=== PATIENT | male | born 1980 | race Caucasian/White ===

== ENCOUNTER 2016-07-11 19:19 | Emergency (ER) | payer BC ==
--- NOTE | 2016-07-11 20:44 | ED Physician Documentation ---
Low Back Pain - HISTORIAN Historian: patient - HPI Chief Complaint: Low Back Pain/ Injury History: back pain Onset: days ago (7 days ago became worse) Duration: continues in ED Recent Injury: No Quality: burning (in right anterior thigh) Associated Symptoms: denies: fever, chills Worsened By:: movement to RT flexion, movement to LT flexion Relieved By: supine, remaining still Further Comments: yes (one week history of back pain, no prcipitting factor noted. Pain is in the mid and lower back are. Has had previous problems and imaging, found to have some pathology (vertabral lesions). Did PT, and medication. Has been having some burning sensation into the right thigh area. Feels like his leg is going to give out on him. Has bben taking Aleve. Has tried heat and cool.) - ROS CONST: no problems CVS/RESP: none - PAST HX Past History: back pain Other History: other (none) Surgeries/Procedures: appendectomy Immunizations: referred to PCP Allergies/Adverse Reactions: Allergies Allergy/AdvReac Type Severity Reaction Status Date / Time shellfish derived Allergy Verified 09/25/15 20:40 Home Medications: Ambulatory Orders Medication Instructions Recorded Baclofen [Lioresal] 10 mg PO TID PRN #30 tablet 09/25/15 Ketorolac Tromethamine [Toradol] 10 mg PO TID #15 tablet 09/25/15 Meloxicam [Mobic] 7.5 mg PO BID PRN #30 ml 07/11/16 - SOCIAL HX Smoking History: non-smoker Alcohol Use: none Drug Use: none - FAMILY HX Family History: no significant history - VITAL SIGNS Vital Signs: Vital Signs Temp Pulse Resp BP Pulse Ox 97.9 F 84 18 157/87 95 07/11/16 19:30 07/11/16 19:30 07/11/16 19:30 07/11/16 19:30 07/11/16 19:30 - REVIEWED ASSESSMENTS Nursing Assessment Reviewed: Yes Vitals Reviewed: Yes ED Results Lab/Radiology - Orders Orders: ED Orders Category Date Time Status T SPINE 3 VIEWS [RAD] Stat Exams 07/11/16 Completed XR L-SP 2 OR 3 VIEWS [L SPINE 2 OR 3 VIEWS] [RAD] Stat Exams 07/11/16 Completed Ketorolac Tromethamine [Toradol] Med 07/11/16 21:09 Discontinued 30 mg IVP NOW ONE Ketorolac Tromethamine [Toradol] Med 07/11/16 21:21 Discontinued 60 mg .ROUTE .STK-MED ONE Ketorolac Tromethamine [Toradol] Med 07/11/16 21:34 Discontinued 60 mg IM NOW ONE traMADol HCL [Ultram] Med 07/11/16 22:08 Ordered 200 mg PO TAKE HOME PRN Low Back Pain/Injury - Physical Exam General Appearance: no acute distress, alert EENT: eye inspection normal, ENT inspection normal Neck: non-tender, painless ROM Resp/CVS: chest non-tender, breath sounds nml, heart sounds nml, no resp. distress, lungs clear, reg. rate & rhythm Abdomen: non-tender, no organomegaly, no pulsatile mass, other (obese) Back: vertebral point-tendernes (from t4-8), CVA tenderness, other (tenderness to the lower lumbar area, no bony abnl noted). No: muscle spasm Straight Leg Raising: Negative Left, Negative Right Neuro/Psych: oriented x3, motor nml, reflexes nml, other (decrease sensation to the T11-l4 dematomes). No: sensation nml, difficulty walking Skin: warm/dry, other (with minimal palpation patient pulls wawy complaining of pain but moves fairly well) Extremities: non-tender, normal range of motion Discharge Clincal Impression: Back pain Qualifiers: Back pain location: low back pain Chronicity: acute Back pain laterality: right Sciatica presence: without sciatica Qualified Code(s): M54.5 - Low back pain Prescriptions: Meloxicam [Mobic] 7.5 mg PO BID PRN #30 ml PRN Reason: Pain Referrals: Primary Doctor,No [Primary Care Provider] - 2 Days Additional Instructions: Continue to use a warm/cool compress to back area, do stretching exercises, take meloxicam as needed for pain. To get established with a primary care provider for further pain management. Home Medications: Ambulatory Orders Baclofen [Lioresal] 10 mg PO TID PRN #30 tablet 09/25/15 Ketorolac Tromethamine [Toradol] 10 mg PO TID #15 tablet 09/25/15 Meloxicam [Mobic] 7.5 mg PO BID PRN #30 ml 07/11/16 Comments: Do back exercises. Take meloxicam as directed. Continue to use some warm and cool compresses to the back area. Get established with a primary care provider for further care. Condition: Stable Disposition: 01 HOME, SELF-CARE Decision to Admit: NO Date of Decison to Admit: 07/11/16 Decision Time: 22:02
[2016-07-11] MEDS ORDERED: KETOROLAC TROMETHAMINE 30 MG/1ML VIAL IVP ONE (21:09)
[2016-07-11] MEDS ORDERED: KETOROLAC TROMETHAMINE 60 MG/2 ML VIAL ONE (21:21)
[2016-07-11] MEDS ORDERED: KETOROLAC TROMETHAMINE 60 MG/2 ML VIAL IM ONE (21:34)
--- NOTE | 2016-07-11 22:03 | Diagnostic Imaging Report ---
SANDIE HEWITT [facility] [address] [facility].[address] [id number] Report Submission Date: Jul 11, 2016 9:58:19 PM CDT Patient Study Name: HOMER KIM Date: Jul 11, 2016 9:28:05 PM CDT Modality Type: CR Gender: M Description: SPINE : 76 Institution: [facility] Physician: SANDIE HEWITT Thoracic spine - three views Clinical history: Back pain for 1 week. Findings: Examination of the thoracic spine in AP, lateral and lateral swimmer' s views demonstrates the vertebrae to be anatomically aligned. There are osteophytes in the mid and lower thoracic vertebrae. Pedicles are intact and the paravertebral soft tissues are within normal limits. Impression: 1. Mild spondylosis. 2. No fracture. Electronically signed on Jul 11, 2016 9:58:19 PM CDT by: Ney TOLEDO
--- NOTE | 2016-07-11 22:03 | Diagnostic Imaging Report ---
SANDIE HEWITT [facility] [address] [facility].[address] [id number] Report Submission Date: Jul 11, 2016 9:56:56 PM CDT Patient Study Name: HOMER KIM Date: Jul 11, 2016 9:30:15 PM CDT Modality Type: CR Gender: M Description: SPINE : 76 Institution: [facility] Physician: SANDIE HEWITT Lumbar spine three views Clinical history: Low back pain for 1 week. Findings: Examination lumbar spine in AP, lateral and lateral coned-down views demonstrates the vertebrae to be anatomically aligned. Pedicles are intact and the paravertebral soft tissues are within normal limits. There is no evident fracture. Impression: 1. Negative lumbar spine. Electronically signed on Jul 11, 2016 9:56:56 PM CDT by: Ney TOLEDO
[2016-07-11] MEDS ORDERED: traMADol HCL 50 MG TABLET PO PRN (22:08)
[2016-07-11] MEDS ORDERED: traMADol HCL 50 MG TABLET ONE (22:21)
[2016-07-11 22:34] VITALS: BP 136/77
== END 2016-07-11 22:27 | disposition home or self-care (01) ==
LOC: ED 19:19
DX: M54.5 Low back pain (principal)
CPT/HCPCS: 72072; 72100; J1885; 96372; 99283

== ENCOUNTER 2016-07-25 09:00 | Emergency (ER) | payer BC ==
[2016-07-25 09:21] VITALS: BP 130/88
--- NOTE | 2016-07-25 10:32 | ED Physician Documentation ---
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 was given acyclovir 500 bid x 3 days at another er w/o relief has active lesions and vessicles genital area. quite painful - finished the achclovir last day or wso-no better. Onset: days ago (5) Timing: worse Duration: persistent since Quality: itchy, painful, burning Identified Cause?: Yes (has lab dx of condition) Context: Medication Exposure: none - ROS CONST: none CVS/RESP: none EYES/ENT: none MS/SKIN/LYMPH: none NEURO/PSYCH: none - PAST HX Past History: none Allergies/Adverse Reactions: Allergies Allergy/AdvReac Type Severity Reaction Status Date / Time shellfish derived Allergy Verified 07/25/16 09:11 Home Medications: Ambulatory Orders Medication Instructions Recorded Valacyclovir HCl [Valacyclovir] 500 mg PO BID 07/25/16 - SOCIAL HX Smoking History: non-smoker Alcohol Use: none Drug Use: none - FAMILY HX Family History: none - VITAL SIGNS Vital Signs: Vital Signs Temp Pulse Resp BP Pulse Ox 98.4 F 78 19 130/88 96 07/25/16 10:05 07/25/16 10:05 07/25/16 10:05 07/25/16 10:05 07/25/16 10:05 - REVIEWED ASSESSMENTS Nursing Assessment Reviewed: Yes Vitals Reviewed: Yes Skin Rash Physical Exam - EXAM General Appearance: anxious Skin: warm,dry, lesion (urogenital arela legs) Character: asymmetric, macular, vesicular Symptoms: tenderness Extremities: non-tender, no edema EENT: eyes nml inspection Neck: trachea midline Respiratory: no resp distress CVS: reg. rate & rhythm Neuro/Psych: oriented x3, motor nml, sensation nml, depressed mood/affect Discharge Clincal Impression: exab HSV Referrals: Primary Doctor,No [Primary Care Provider] - 2 Days Home Medications: Ambulatory Orders Valacyclovir HCl [Valacyclovir] 500 mg PO BID 07/25/16 Comments: PT TOLD ME ACYCLOVIR PREV TX 500 BID X 3 DAYS. added clotrimazole plusd higher dosage acyclovir and ultram and to f/u w/ dermatologisdts Condition: Fair Disposition: 01 HOME, SELF-CARE Decision to Admit: NO Decision Time: 09:22
== END 2016-07-25 10:05 | disposition home or self-care (01) ==
LOC: ED 09:00
DX: A60.1 Herpesviral infection of perianal skin and rectum (principal)
CPT/HCPCS: 99283

== ENCOUNTER 2016-08-10 13:37 | Outpatient (CLI) | payer BC ==
--- NOTE | 2016-08-12 12:54 | HISTORY AND PHYSICAL REPORT ---
REFERRING PHYSICIAN: Dr. Jesus Diaz HISTORY OF PRESENT ILLNESS: I had the opportunity of seeing Anastacia Loja today as an outpatient at [facility]. Anastacia is a delightful 36-year-old white male who gives me a 2 to 3 history of right-sided both gluteal and anterior thigh pain which at times becomes associated with numbness in the medial calf of the right leg. He denies pain on the left side. He denies symptoms of neurogenic claudication. 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 He has x-ray images with him today which are for the most part normal. He tells me that he had an MRI done at the [place] [facility] and was told he had a disk injury between L4 and L5 in the lumbar spine. He denies pain on the left. He has symptoms of L4 radiculitis on the right. His rates the pain as severe as 10/10 on a visual analog scale or as little as 1 over 10 on the visual analog scale with rest. PAST MEDICAL HISTORY: History of back pain for 2 years. PAST SURGICAL HISTORY: Appendectomy in 2007. DAILY MEDICATIONS: Meloxicam 15 mg b.i.d. ALLERGIES: Shell fish causing swelling in his mouth and throat. SOCIAL HISTORY: He has never used tobacco. He quit drinking in 2014. Denies recreational drugs. He is and has 4 children. He obtained his GED. He is currently employed. 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 He is not currently disabled. FAMILY HISTORY: Mother with pain problems resulting from arthritis and bone spurring. REVIEW OF SYSTEMS: In the last month or so, he reports a weight gain. Pain is worsened with standing, bending, twisting, driving, gradually worsens as the day progresses, and in any position for too long. Pain is improved with lying down, sitting, and massage. PHYSICAL EXAMINATION: Vital Signs: BP: 140/80, P: 62, R: 20, oxygen saturation is 98% on room air. General: The patient is well nourished, well developed, and in no apparent distress. Awake, alert, and oriented. HEENT: Pupils are equal, round, and reactive to light and accommodation. Extraocular movements intact. No facial droop. Neck: There is full range of motion of the cervical spine. No evidence of adenopathy. Thyroid is nontender, no enlarged. Carotids are without bruits. Chest: Clear to auscultation bilaterally. Normal. Chest excursion. Heart: Regular rate and rhythm without murmur. Abdomen: Benign. Normoactive bowel sounds. Motor/sensory: Intact in the upper and lower extremities. Moves all extremities freely. Back: There is pain in the right sciatic notch. There is a positive femoral nerve stretch. Strength is 5/5 and equal in the lower extremities. Reflexes are 2+ and equal on the left patellar tendon and 1+ on the right patellar tendon and 2+ at the Achilles tendons. ASSESSMENT: Right L4 radiculitis. PLAN: Plan for right L4-L5 epidural steroid injection under fluoroscopy. I will follow this nice gentleman up next month and reevaluate. I discussed activity pacing and if he is standing and beginning to get symptoms, that may be a signal to sit down for a while and activity pace. He is in agreement and we will obtain approval for a right L4-L5 epidural steroid injection in the clinic and follow him up with his MRI study. Dr. Diaz, thank you very much for allowing me to take part in the care of this nice gentleman. I appreciate the opportunity to take part in the care of your patients. cc: Dr. Jesus TOLEDO
--- NOTE | 2016-09-14 12:15 | LESI WITH FLUORO ---
SUBJECTIVE: I had the opportunity of seeing Tate Loja today as an outpatient at [facility]. Tate is a very nice 36-year-old white male who complains of back pain and right anterior thigh pain which began over a year ago and he says maybe almost 2 years ago. He has more pain with standing, bending, walking, and twisting. Severity can be as great as 8 over 10 on the visual analog scale and never better than 2 over 10 on the visual analog scale. Pain is relieved by walking, sitting, or massage. He has had tramadol in the past. He has done some physical therapy for low back pain in the past. He has had massage therapy. He has taken non-steroidal antiinflammatories without improvement. He denies pain on the left side. He has pain over the L4 dermatomal segment. OBJECTIVE: Vital Signs: BP: 142/85, P: 83, R: 20, T: 97.7, oxygen saturation is 98%. General: The patient is well nourished, well developed, and in no apparent distress. Awake, alert, and oriented. HEENT: Pupils are equal, round, and reactive to light and accommodation. Extraocular movements intact. No facial droop. Neck: There is full range of motion of the cervical spine. No evidence of adenopathy. Thyroid is nontender, no enlarged. Carotids are without bruits. Chest: Clear to auscultation bilaterally. Normal. Chest excursion. Heart: Regular rate and rhythm without murmur. Abdomen: Benign. Normoactive bowel sounds. Motor/sensory: Intact in the upper and lower extremities. Moves all extremities freely. Back: There is a positive femoral nerve stretch on the right. Strength is 5/5 and equal in the lower extremities. OPERATIVE PROCEDURE: Right L4-L5 epidural steroid injection with fluoroscopic guidance. DESCRIPTION OF PROCEDURE: The risks and benefits were discussed with the patient including the risk of infection, bleeding, nerve injury, and headache, as well as the risks of steroid exposure causing hyperglycemia, hypertension, osteoporosis, or increased infectious risks. The patient understood these risks and agreed to proceed. Consent was obtained prior to the procedure. The patient was placed in the prone position on the fluoroscopy table with a pillow underneath the abdomen to afford anterior flexion of the lumbar spine. The low back was cleaned and a sterile drape was applied. An 18-gauge thin wall Tuohy epidural needle was advanced with normal saline loss of resistance technique and direct fluoroscopic guidance with a right paramedian approach at the L4-L5 level. On obtaining loss of resistance to normal saline, it was verified that there was no aspiration of CSF or blood. Furthermore, the needle tip location was verified with lateral and AP fluoroscopic views. Omnipaque 240 myelogram dye were injected through the epidural needle. The distribution of the dye was noted to be within the desired distribution within the lumbar epidural space. The patient did report some reproduction of the low back and / or lower extremity pain symptoms; this reproduction of symptoms was short- lived. Triamcinolone acetate, and 1% lidocaine was injected into the epidural space. The stylet was replaced in the needle and the needle was removed from the back. The patient tolerated the procedure well. The back was cleaned and a bandage was applied over the injection site. The patient was monitored for 20 minutes following the procedure. during this time the vital signs remained stable and the patient experienced no adverse sequelae. The patient was discharged in good condition. ASSESSMENT: Right L4 radiculitis. PLAN: Right L4-L5 epidural steroid injection under fluoroscopy. FOLLOWUP: He will follow up with me in approximately [address] Diaz, thank you very much for allowing me to take part in the care of this nice gentleman. cc: Dr. Jesus TOLEDO
== END 2016-08-10 13:40 ==
LOC: OUT 13:37
PROVIDERS: ATTEND Anesthesiology Pain Medicine
DX: M54.16 Radiculopathy, lumbar region (principal)
CPT/HCPCS: 64483; 99203; J3301; Q9966

== ENCOUNTER 2016-09-14 12:46 | Outpatient (CLI) | payer BC ==
--- NOTE | 2016-09-15 11:48 | LUMBAR FACET MBB ---
SUBJECTIVE: I had the opportunity of following up with Tate Loja. This is a patient with a history of right greater than left leg pain and low back pain. I placed an L4-L5 epidural injection palliatively on his initial presentation last month and he is no better. He had an MRI done last December and we were able to get the results from the [facility] which revealed primary lumbar spondylosis without spinal or neural foramina stenosis. He has a positive assisted extension and extension rotation finding on exam today. Plan today for bilateral facet medial branch nerve blocks under fluoroscopic guidance as a diagnostic/palliative intervention. At that point if this was diagnostically significant, I would consider radiofrequency neurolysis. PREOPERATIVE DIAGNOSIS: Lumbar spondylosis. POSTOPERATIVE DIAGNOSIS: Lumbar spondylosis. OPERATIVE PROCEDURE: Bilateral L3 through sacral ala facet medial nerve branch blocks with fluoroscopic guidance for axial back pain. DESCRIPTION OF PROCEDURE: The risks and benefits of the procedure were explained to the patient including the risk of infection, bleeding, and nerve injury. In addition, the risk of steroid exposure causing hyperglycemia, hypertension, osteoporosis, or increased infectious risks were explained to the patient. The patient understood these risks and agreed to proceed. The patient was positioned prone on the fluoroscopic procedure table and a sterile prep and drape were applied. The L3 vertebral body and transverse process of L3 and superior articular process were identified and under oblique placement, a #23-gauge, 3-1/2-inch spinal needle was advanced to the junction of the left L3 transverse process and superior articular process at the level of the L3 facet medial branch nerve. Aspiration was negative for blood or CSF. Following this, 0.25% bupivacaine with epinephrine mixed with 1% lidocaine and triamcinolone was placed. This did in fact re-create the patient's usual pain symptoms. In the exact same fashion, the right L3, bilateral L4, bilateral L5, and bilateral sacral ala facet medial branch blocks were subsequently performed for a total of 8 medial branch blocks at 4 levels bilaterally. At the conclusion of the procedure, the patient reported greater than 90% improvement of his low back pain. He was discharged home with a diary. He will follow up next month for possible radiofrequency neurolysis. On completion of the procedure, the back was cleaned and a bandage was applied over the injection sites. The patient tolerated the procedure without complications. The patient was monitored for 20 minutes following the procedure during which time the patient experienced no adverse sequelae. The patient was discharged to home in good condition. The patient was instructed to pay close attention to low back pain symptoms with activity over the next 6 hours, specifically performing normal activities which may usually exacerbate the low back pain complaints (in order to test the effect of the nerve blocks). ASSESSMENT: Lumbar facet arthropathy. PLAN: Plan today for bilateral facet medial branch nerve blocks under fluoroscopic guidance as a diagnostic/palliative intervention. [place]
== END 2016-09-14 12:48 ==
LOC: OUT 12:46
PROVIDERS: ATTEND Anesthesiology Pain Medicine
DX: M47.896 Other spondylosis, lumbar region (principal)
CPT/HCPCS: 64493; 64494; 64495; 99214; J3301; J3490

== ENCOUNTER 2016-09-22 18:32 | Emergency (ER) | payer BC ==
--- NOTE | 2016-09-22 19:09 | ED Physician Documentation ---
Low Back Pain - HISTORIAN Historian: patient - HPI Stated Complaint: upper and lower back pain History: history of chronic pain:, back pain Onset: other (months) Duration: continues in ED Recent Injury: No Context: other (no precipitting factor) Severity: moderate Quality: similar- prior back pain Associated Symptoms: denies: fever, chills Worsened By:: supine, other (sanding or sitting for to claeb) Relieved By: nothing Further Comments: yes (Has been seeing pain specilaist for back pain in the midthoracic andlower back area. Has been using NSAIDs and massage therapy w/o help. Has had several steroid injections, TENS, and branch block. Nerve block did help for a period fo time and is scheduled for ablation therapy.) - ROS CVS/RESP: none - PAST HX Past History: back pain Other History: other (no) Surgeries/Procedures: appendectomy Allergies/Adverse Reactions: Allergies Allergy/AdvReac Type Severity Reaction Status Date / Time shellfish derived Allergy Verified 09/22/16 18:45 Home Medications: Ambulatory Orders Medication Instructions Recorded Ibuprofen [Motrin Ib] 800 mg PO TID 09/22/16 Naproxen [Naprosyn] 1,000 mg PO BID 09/22/16 Tramadol HCl [Ultram] 50 mg PO Q4 PRN #20 tablet 09/22/16 - SOCIAL HX Smoking History: non-smoker Alcohol Use: none Drug Use: none - FAMILY HX Family History: no significant history - VITAL SIGNS Vital Signs: Vital Signs Temp Pulse Resp BP Pulse Ox 130/88 07/25/16 10:05 - REVIEWED ASSESSMENTS Nursing Assessment Reviewed: Yes Vitals Reviewed: Yes Low Back Pain/Injury - Physical Exam General Appearance: alert, mild distress Neck: non-tender Resp/CVS: chest non-tender, breath sounds nml, heart sounds nml, no resp. distress, lungs clear, reg. rate & rhythm Back: vertebral point-tendernes (over mid thoracic back area), muscle spasm ( perilumbar area) Straight Leg Raising: Negative Left, Negative Right Neuro/Psych: oriented x3, motor nml, sensory/motor deficit (to light touch over the anterior thigh and lateral calf area). No: sensation nml Skin: warm/dry, normal color Extremities: non-tender, normal range of motion, no evidence of injury Discharge Clincal Impression: Acute back pain Prescriptions: Tramadol HCl [Ultram] 50 mg PO Q4 PRN #20 tablet PRN Reason: Pain Referrals: Primary Doctor,No [Primary Care Provider] - 2 Days Additional Instructions: Continue with exercises for your back pain. Keep your appointments with pain specialist. Take Tramadol every 4 hours as needed for pain. Take it with some food. Follow-up as needed. Home Medications: Ambulatory Orders Ibuprofen [Motrin Ib] 800 mg PO TID 09/22/16 Naproxen [Naprosyn] 1,000 mg PO BID 09/22/16 Tramadol HCl [Ultram] 50 mg PO Q4 PRN #20 tablet 09/22/16 Condition: Stable Disposition: 01 HOME, SELF-CARE Decision to Admit: NO Date of Decison to Admit: 09/22/16 Decision Time: 19:11
[2016-09-22 19:41] VITALS: BP 138/68
== END 2016-09-22 19:40 | disposition home or self-care (01) ==
LOC: ED 18:32
DX: M54.9 Dorsalgia, unspecified (principal)
CPT/HCPCS: 99283

== ENCOUNTER 2017-01-10 04:11 | Emergency (ER) | payer SELFPAY ==
[2017-01-10] MEDS ORDERED: ALBUTEROL SULFATE 2.5 MG/3 ML AMPUL.NEB NEB ONE (04:23)
[2017-01-10] MEDS: ALBUTEROL SULFATE 2.5 MG/3 ML AMPUL.NEB NEB ONE (04:24)
[2017-01-10 04:33] VITALS: BP 130/75
[2017-01-10] MEDS: guaiFENesin/CODEINE PHOS 30ML BOTTLE PO ONE (04:41)
--- NOTE | 2017-01-10 04:41 | ED Physician Documentation ---
Upper Respiratory Symptoms - HISTORIAN Historian: patient - HPI Stated Complaint: cough Chief Complaint: Cough/ Upper Respiratory Onset: minutes Associated Symptoms: other. denies: fever, chills, sweating, earache, runny nose, sinus pain, sinus drainage, sore throat, hoarseness, allergy, hay fever, chest pain, bloody cough, productive cough, shortness of breath, hurts to breathe, headache Further Comments: yes (36 year old male patient presents with complaint of 15 minutes of coughing. States he was sleeping, awoke coughing. Lasted for 15 minutes, came to Er for evaluation. Denies SOB, states he felt fine when he went to bed. c/o wheezing.) - ROS CONST/EYES: denies: weakness, eye redness, eye itching CVS/RESP: none LYMPH: denies: leg swelling, rash GI/: none NEURO/PSYCH: denies: fainting, dizziness, confusion MS/SKIN: denies: joint pain, muscle aches, rash - PAST HX Lung Disease: none PE Risk Factors: none Surgeries/Procedures: appendectomy Allergies/Adverse Reactions: Allergies Allergy/AdvReac Type Severity Reaction Status Date / Time shellfish derived Allergy Verified 01/10/17 04:27 Home Medications: Ambulatory Orders Medication Instructions Recorded NK [NK] 01/10/17 - SOCIAL HX Smoking History: non-smoker - FAMILY HX Family History: denies: none - VITAL SIGNS Vital Signs: Vital Signs Temp Pulse Resp BP Pulse Ox 97.7 F 81 16 130/75 97 01/10/17 04:45 01/10/17 04:45 01/10/17 04:45 01/10/17 04:45 01/10/17 04:45 - REVIEWED ASSESSMENTS Nursing Assessment Reviewed: Yes Vitals Reviewed: Yes Progress - Progress Progress: albuterol neb and cough medication given in Er. No coughing while in Er. ED Results Lab/Radiology - Orders Orders: ED Orders Category Date Time Status Albuterol Sulfate [Ventolin] Med 01/10/17 04:23 Discontinued 2.5 mg NEB .STK-MED ONE Albuterol Sulfate [Ventolin] Med 01/10/17 04:22 Discontinued 2.5 mg NEB NOW ONE guaiFENesin/CODEINE PHOS 30ML [Robitussin AC] Med 01/10/17 04:41 Discontinued 10 ml PO NOW ONE Upper Respiratory Symptoms - EXAM General Appearance: alert, anxious EENT: eyes nml inspection, nml ENT inspection, lids & conjunct. nml, PERRL, ear nml, nose nml, pharynx nml, airway nml Respiratory: no resp. distress, breath sounds nml, no pain on inspiration, speaks full sentences, no pleuritic chest pain, other (no stridor). No: wheezes Abdomen: non-tender CVS: reg rate & rhythm, heart sounds normal, equal pulses, no murmur, no gallop , PMI nml, no JVD, no friction rub, 24 Skin: color nml, no rash, warm,dry Extremities: non-tender, normal range of motion, no evidence of injury, no edema , J, [employer] Neuro/Psych: oriented x3, neuro intact, mood/affect nml, CN's nml as tested Discharge Clincal Impression: Cough Referrals: Primary Doctor,No [Primary Care Provider] - 2 Days Condition: Stable Disposition: 01 HOME, SELF-CARE Decision to Admit: NO Decision Time: 04:41
== END 2017-01-10 04:45 | disposition home or self-care (01) ==
LOC: ED 04:11
DX: R05 Cough (principal)
CPT/HCPCS: 99283

== ENCOUNTER 2017-02-17 12:30 | Emergency (ER) | payer SELFPAY ==
--- NOTE | 2017-02-17 12:50 | ED Physician Documentation ---
General Adult - HISTORIAN Historian: patient - HPI Stated Complaint: right leg nerve pain which is managed by pain med Chief Complaint: Lower Extremity Problem Additional Information: Pain that is managed by Pain management - his insurance lapsed for 30 days and his surgery was cancelled. He has no new symptoms He denies any new issues HE states the pain is from the nerve and he is waiting on nerve ablation Timing: still present Severity: mild Modifying Factors: when he stands at work Context: Pain that moves down the right leg and to front Location: Right leg Further Comments: no Last known Well Date: 02/08/17 Last Known Well Time: 07:00 Last known Well Code/Unknown Code: Unknown - ROS CONST: no problems EYES/ENT: none CVS/RESP: none GI/: none MS/SKIN/LYMPH: none NEURO/PSYCH: denies: headache, fainting, dizziness - PAST HX Past History: other (nerve pain ) Other History: none Surgeries/Procedures: none, other (Appendix ) Immunizations: referred to PCP Allergies/Adverse Reactions: Allergies Allergy/AdvReac Type Severity Reaction Status Date / Time shellfish derived Allergy Verified 02/17/17 12:50 Home Medications: Ambulatory Orders Medication Instructions Recorded Tramadol HCl [Ultram] 50 mg PO BID PRN #20 tablet 02/17/17 - SOCIAL HX Smoking History: non-smoker Alcohol Use: none Drug Use: none - FAMILY HX Family History: Yes - VITAL SIGNS Vital Signs: Vital Signs Temp Pulse Resp BP Pulse Ox 130/75 01/10/17 04:45 General Adult Physical Exam - PHYSICAL EXAM GENERAL APPEARANCE: no distress EENT: eye inspection normal NECK: normal inspection RESPIRATORY: no resp distress, chest non-tender, breath sounds normal CVS: reg rate & rhythm, heart sounds normal, equal pulses, no murmur ABDOMEN: soft, normal bowel sounds BACK: normal inspection SKIN: warm/dry, normal color EXTREMITIES: non-tender, other (right leg has pain (nerve pain) on lateral side that wraps to front - no redness no streaking no swelling ) NEURO: oriented X3, CN's nml as tested, motor nml Discharge Clincal Impression: Right leg pain Prescriptions: Tramadol HCl [Ultram] 50 mg PO BID PRN #20 tablet PRN Reason: Pain Referrals: Primary Doctor,No [Primary Care Provider] - 2 Days Condition: Stable Disposition: 01 HOME, SELF-CARE Decision to Admit: NO Date of Decison to Admit: 02/17/17 Decision Time: 12:59
[2017-02-17] MEDS: KETOROLAC TROMETHAMINE 60 MG/2 ML VIAL IM ONE (12:55)
[2017-02-17 13:11] VITALS: BP 156/94
== END 2017-02-17 13:09 | disposition home or self-care (01) ==
LOC: ED 12:30
DX: M79.604 Pain in right leg (principal)
CPT/HCPCS: 96372; 99283; J1885

== ENCOUNTER 2017-10-01 19:04 | Emergency (ER) | payer SELFPAY ==
--- NOTE | 2017-10-01 19:10 | ED Physician Documentation ---
General Adult - HISTORIAN Historian: patient - HPI Stated Complaint: left tooth dental pain Chief Complaint: Dental Pain Onset: other (3 weeks ) Timing: still present Severity: moderate (6 on 1/10 scale ) Further Comments: yes (he states he has had this dental pain for 3 weeks. no dentist Using 800 mg ibuprofen 4 times per day. no fever. No other complaints.) Last known Well Code/Unknown Code: Unknown - ROS CONST: no problems EYES/ENT: none CVS/RESP: none GI/: none MS/SKIN/LYMPH: none - PAST HX Past History: none Other History: none Surgeries/Procedures: none Immunizations: UTD - SOCIAL HX Smoking History: cigarettes Alcohol Use: none Drug Use: none - FAMILY HX Family History: No - VITAL SIGNS Vital Signs: Vital Signs Temp Pulse Resp BP Pulse Ox 156/94 02/17/17 13:09 - REVIEWED ASSESSMENTS Nursing Assessment Reviewed: Yes Vitals Reviewed: Yes General Adult Physical Exam - PHYSICAL EXAM GENERAL APPEARANCE: no distress EENT: eye inspection normal, other (left lower tooth with obvious decay- no drainge. Gum not inflammed ) NECK: normal inspection RESPIRATORY: no resp distress, chest non-tender, breath sounds normal CVS: reg rate & rhythm, heart sounds normal, equal pulses, no murmur ABDOMEN: soft, normal bowel sounds BACK: normal inspection SKIN: warm/dry, normal color EXTREMITIES: non-tender, normal range of motion, no evidence of injury, no edema NEURO: oriented X3, CN's nml as tested, motor nml, sensation nml, mood/affect nml, cognition normal Discharge Clincal Impression: Pain, dental Referrals: Primary Doctor,No [Primary Care Provider] - 2 Days Additional Instructions: 1. DO NOT TAKE ibuprofen more than advised 2. Warm salt water gargles 3. Tramodol 50 mg take 1 by mouth every 8 hours as needed for pain 4. SEE A DENTIST [place] 5. Return to ER for any concerns Condition: Stable Disposition: 01 HOME, SELF-CARE Decision to Admit: NO Date of Decison to Admit: 10/01/17 Decision Time: 19:25
[2017-10-01] MEDS ORDERED: KETOROLAC TROMETHAMINE 60 MG/2 ML VIAL ONE (19:21)
[2017-10-01] MEDS ORDERED: KETOROLAC TROMETHAMINE 60 MG/2 ML VIAL IM ONE (19:21)
[2017-10-02 06:37] LABS: APPEARANCE,URINE CLEAR (CLEAR); COLOR,URINE YELLOW (YELLOW); OCCULT BLOOD,URINE NEGATIVE (NEGATIVE); UROBILINOGEN URINE 0.2 Eu (0.2-1.0)
== END 2017-10-01 19:45 | disposition home or self-care (01) ==
LOC: ED 19:04
DX: K08.89 Other specified disorders of teeth and supporting structures (principal)
CPT/HCPCS: 81002; J1885; 96372; 99283

== ENCOUNTER 2018-04-21 19:44 | Emergency (ER) | payer OTHER ==
--- NOTE | 2018-04-21 19:58 | ED Physician Documentation ---
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 No OTC meds have been used for pain. He states pain 3- 07/13 .) - ROS CONST: no problems MS/SKIN/LYMPH: none - PAST HX Past History: none Other History: none Immunizations: UTD Allergies/Adverse Reactions: Allergies Allergy/AdvReac Type Severity Reaction Status Date / Time No Known Allergies Allergy Verified 04/21/18 19:59 Home Medications: Ambulatory Orders Medication Instructions Recorded NK 04/21/18 - SOCIAL HX Smoking History: non-smoker Alcohol Use: none Drug Use: none - FAMILY HX Family History: No - VITAL SIGNS Vital Signs: Vital Signs Temp Pulse Resp BP Pulse Ox 98.2 F 77 18 136/81 98 04/21/18 19:53 04/21/18 19:53 04/21/18 19:53 04/21/18 19:53 04/21/18 19:53 - REVIEWED ASSESSMENTS Nursing Assessment Reviewed: Yes Vitals Reviewed: Yes Progress - Progress Progress: 2039: Discussed results and plan. He is agreeable DG ED Results Lab/Radiology - Radiology Radiology Impressions: Three views left shoulder Clinical history: Pain for the past week. Findings: Examination left shoulder multiple views fails to demonstrate evidence of fracture, dislocation or other bone or joint pathology. Electronically signed on Apr 21, 2018 8:30:21 PM [employer] by: Ney Crowley General Adult Physical Exam - PHYSICAL EXAM GENERAL APPEARANCE: no distress EENT: eye inspection normal, no signs of dehydration NECK: normal inspection RESPIRATORY: no resp distress, chest non-tender, breath sounds normal CVS: reg rate & rhythm, heart sounds normal, equal pulses ABDOMEN: soft, normal bowel sounds, no distension BACK: normal inspection SKIN: warm/dry, normal color EXTREMITIES: non-tender, other (Decreased active elevation. Pain with resistance ) NEURO: oriented X3 Discharge Clincal Impression: Shoulder pain, left Qualifiers: Chronicity: acute Qualified Code(s): M25.512 - Pain in left shoulder Referrals: Primary Doctor,No [Primary Care Provider] - 2 Days Additional Instructions: 1. Cyclobenzaprine 10 mg take 1 by mouth every 12 hours as needed for pain 2. Tramadol 50 mg take 1 by mouth every 8 hours as needed for pain 3. See PCP in 2 days for follow up and possible MRI 4. Ice /heat for comfort 5. Return to ER for any concerns Condition: Stable Disposition: 01 HOME, SELF-CARE Decision to Admit: NO Date of Decison to Admit: 04/21/18 Decision Time: 20:41
[2018-04-21] MEDS ORDERED: KETOROLAC TROMETHAMINE 60 MG/2 ML VIAL IM ONE (20:11)
[2018-04-21] MEDS ORDERED: methylPREDNISolone ACETATE 80 MG/ML VIAL IM ONE (20:11)
[2018-04-21] MEDS ORDERED: CYCLOBENZAPRINE HCL 10 MG TABLET PO ONE (20:12)
[2018-04-21] MEDS ORDERED: CYCLOBENZAPRINE HCL 5 MG TABLET ONE (20:16)
[2018-04-21 20:45] VITALS: BP 127/75
--- NOTE | 2018-04-21 23:08 | Diagnostic Imaging Report ---
OLIVERIO DASH [facility] [address] [facility].[address] 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 Findings: Examination left shoulder multiple views fails to demonstrate evidence of fracture, dislocation or other bone or joint pathology. Electronically signed on Apr 21, 2018 8:30:21 PM [employer]ARTER [employer]ER by: Ney TOLEDO
== END 2018-04-21 20:42 | disposition home or self-care (01) ==
LOC: ED 19:44
DX: M25.512 Pain in left shoulder (principal)
CPT/HCPCS: 73030; 96372; 99282; 99284; J1040; J1885